=== PATIENT | female | born 1940 | race Caucasian/White ===

== ENCOUNTER → 2021-07-03 | Outpatient (CLI) | payer SELFPAY ==
[2021-07-03 18:38] LABS: INR 3.71 (0.90-1.11); Prothrombin Time 37.1 sec (9.9-11.9)
== END | disposition home or self-care (01) ==
LOC: LABWHC1 14:02
PROVIDERS: ATTEND Internal Medicine Cardiovascular Disease
DX: I48.20 Chronic atrial fibrillation, unspecified (principal); Z95.3 Presence of xenogenic heart valve; Z98.890 Other specified postprocedural states
CPT/HCPCS: 36415; 85610

== ENCOUNTER → 2021-07-16 | Outpatient (CLI) | payer MEDICARE ==
--- NOTE | 2021-07-17 10:17 | ECHOF ---
Referral Reason:I48.20 Chronic atrial fibrillation, unspecified MEASUREMENTS -------- HEIGHT: 165.1 cm WEIGHT: 60.3 kg BP: 132/68 RVIDd: 2.9 cm (< 3.3) IVSd: 0.9 cm (0.6 - 1.1) LVIDd: 4.4 cm (3.9 - 5.3) LVPWd: 0.7 cm (0.6 - 1.1) IVSs: 1.4 cm LVIDs: 3.0 cm LVPWs: 1.4 cm LA Diam: 4.9 cm (2.7 - 3.8) LAESV Index (A-L): 93.14 ml/m Ao Diam: 2.6 cm (2.0 - 3.7) AV Cusp: 1.1 cm (1.5 - 2.6) MV EXCURSION: 10.022 mm (> 18.000) MV EF SLOPE: 35 mm/s (70 - 150) EPSS: 1.2 cm AR PHT: 518 ms FINDINGS -------- Atrial fibrillation. This was a technically good study. The left ventricular size is normal. Left ventricular wall thickness is normal. Overall left vent ricular systolic function is mild-moderately impaired with, an EF between 40 - 45 %. The right ventricle is normal in size. LA is severely dilated >40 ml/m2 The right atrium is normal in size. Interatrial and interventricular septum intact. Aortic valve is trileaflet and is mildly thickened. There is [id number] aortic regurgitation. The peak and mean MV gradients are 16.88mmHg 3.00mmHg as measured by doppler. Normally functioning bioprosthetic mitral valve. The tricuspid valve appears structurally normal. No regurgitation noted Unable to estimate RVSP d ue to inadequate TR jet spectral doppler profile. TV RING Trace/mild (physiologic) pulmonic regurgitation. The aortic root size is normal. Normal inferior vena cava with normal inspiratory collapse consistent with estimated right atrial pre ssure of 5 mmHg. There is no pericardial effusion. CONCLUSIONS -------- 1. The left ventricular size is normal. 2. Left ventricular wall thickness is normal. 3. Overall left ventricular systolic function is mild-moderately impaired with, an EF between 40 - 45 %. 4. LA is severely dilated >40 ml/m2 5. Aortic valve is trileaflet and is mildly thickened. 6. There is [id number] aortic regurgitation. 7. The peak and mean MV gradients are 16.88mmHg 3.00mmHg as measured by doppler. 8. Normally functioning bioprosthetic mitral valve. 9. The tricuspid valve appears structurally normal. 10. TV RING 11. Trace/mild (physiologic) pulmonic regurgitation. 12. There is no pericardial effusion. LEAD PRINTER: Nolvia Vitale RDCS
== END | disposition home or self-care (01) ==
LOC: RADECHMAIN 14:10
PROVIDERS: ATTEND Internal Medicine Geriatric Medicine
DX: I35.1 Nonrheumatic aortic (valve) insufficiency (principal)
CPT/HCPCS: 93306